=== PATIENT | male | born 1945 | race Caucasian/White ===

== ENCOUNTER 2021-07-16 15:12 | Emergency (ER) | payer OTHER ==
[2021-07-16 16:13] LABS: BASOPHIL 0.2 % (0-2); EOSINOPHIL 0.9 % (0-7); HCT 47.2 % (42.0-52.0); HGB 16.2 g/dl (13.2-18.0); LYMPHOCYTE 18.8 % (15-48); MCHC 34.3 g/dL (32.0-36.0); MCV 90.2 fL (78.0-100.0); NEUTROPHIL 74.8 % (41-80); NRBC 0; PLT 145 K/uL (150-400); RBC 5.23 M/uL (4.70-6.00); RDW 13.6 % (11.5-14.0); WBC 11.5 K/uL (4.0-10.5)
[2021-07-16 16:39] LABS: BILIRUBIN NEGATIVE (NEGATIVE); BLOOD 1+ Ery/uL (NEGATIVE); CLARITY CLEAR (CLEAR); COLOR YELLOW (YELLOW); GLUCOSE (U) NORMAL (NORMAL); LEUKOCYTES NEGATIVE Leu/uL (NEGATIVE); NITRITE NEGATIVE (NEGATIVE); PROTEIN NEGATIVE (NEGATIVE); UROBILINOGEN 0.2 mg/dL (0.2-1.0)
[2021-07-16 16:56] LABS: URINARY WBC RARE
[2021-07-16 17:08] LABS: BILIRUBIN - TOTAL 0.8 mg/dL (0.2-1.0); BUN/CREAT RATIO (CALC) 27.1 RATIO; CREATININE 0.7 mg/dL (0.67-1.17); GLOBULIN (CALCULATION) 3.8 g/dL; POTASSIUM 3.8 mmol/L (3.5-5.1); TOTAL PROTEIN 7.8 g/dL (6.4-8.2)
[2021-07-16] MEDS ORDERED: MIRALAX17 GM PO (17:23)
[2021-07-16] MEDS ORDERED: STOOL SOFTENER100 MG PO (17:23)
== END 2021-07-16 18:00 | disposition home or self-care (01) ==
LOC: FER 15:12
PROVIDERS: Physician Assistant
DX: K59.00 Constipation, unspecified (principal); I10 Essential (primary) hypertension; Z79.82 Long term (current) use of aspirin; Z79.899 Other long term (current) drug therapy
CPT/HCPCS: 36415; 80053; 81001; 85025; J2270; J2405